=== PATIENT | female | born 1980 | race Caucasian/White ===

== ENCOUNTER 2018-07-03 22:17 | Outpatient (REF) | payer MEDICAID, SELFPAY ==
[2018-07-03 22:53] LABS: Anion Gap 12.7 mmol/L (3-11); BUN 18 mg/dL (7-18); CO2 25.3 mmol/L (21.0-32.0); CREATININE 0.85 mg/dL (0.55-1.02); Calcium 9.9 mg/dL (8.5-10.1); Chloride 99 mmol/L (98-107); Glucose 243 mg/dL (70-100); Potassium 3.8 mmol/L (3.5-5.1); Sodium 137 mmol/L (136-145)
[2018-07-04 10:51] LABS: TSH (W/Ref FT4) 8.61 uIU/mL (0.358-3.74)
[2018-07-04 11:09] LABS: FREE T4 1.05 ng/dL (0.76-1.46)
== END 2018-07-03 22:37 ==
LOC: NCHCN 22:17
PROVIDERS: PCP Family Medicine; Visit Provider Family Medicine
DX: I10 Essential (primary) hypertension (principal); E11.65 Type 2 diabetes mellitus with hyperglycemia; E03.9 Hypothyroidism, unspecified
CPT/HCPCS: 80048; 84439; 84443

== ENCOUNTER 2019-05-01 16:06 | Outpatient (REF) | payer MEDICAID, SELFPAY ==
[2019-05-01 21:09] LABS: Abs Immature Grans 0.02 k/cumm (0.0-0.09); Absolute Basophil Count 0.02 k/cumm (0.0-0.2); Absolute Eosinophil Count 0.26 k/cumm (0.0-0.7); Absolute Lymphocyte Count 2.21 k/cumm (1.2-3.4); Absolute Monocyte Count 0.53 k/cumm (0.11-0.7); Absolute Neutrophil Count 5.26 k/cumm (1.2-6.7); Basophils % 0.2; Eosinophils % 3.1; HCT 34.9 % (36.0-46.0); HGB 10.6 g/dL (12.0-15.5); Immature Grans % 0.2; Lymphocytes % 26.6; Mean Corp. HGB Concentration 30.4 g/dL (32.0-36.0); Mean Corpuscular Hemoglobin 22.1 pg (27.0-33.0); Mean Corpuscular Volume 72.9 fL (80-95); Mean Platelet Volume 11.2 fL (8.0-11.0); Monocytes % 6.4; Neutrophils % 63.5; Platelet Count 381 x1000/uL (130-400); RBC 4.79 m/cumm (4.00-5.20); RBC Distribution Width 19.1 % (11.7-14.6)
[2019-05-01 21:27] LABS: ALT 26 U/L (12-78); Anion Gap 12.2 mmol/L (3-11); BUN 14 mg/dL (7-18); CO2 22.8 mmol/L (21.0-32.0); CREATININE 0.61 mg/dL (0.55-1.02); Calcium 8.6 mg/dL (8.5-10.1); Calculated LDL 115 mg/dL; Chloride 101 mmol/L (98-107); Cholesterol 187 mg/dL (50-200); Glucose 227 mg/dL (70-100); HDL Cholesterol 42 mg/dL (40-60); Potassium 4.6 mmol/L (3.5-5.1); Sodium 136 mmol/L (136-145); TSH (W/Ref FT4) 3.75 uIU/mL (0.358-3.74); Triglyceride 151 mg/dL (30-150)
[2019-05-01 21:53] LABS: FREE T4 1.04 ng/dL (0.76-1.46)
[2019-05-01 22:39] LABS: Anisocytosis 1+; Microcytosis 1+
[2019-05-01 22:40] LABS: Stomatocytes 2+
== END 2019-05-01 16:26 ==
LOC: NCHCN 16:06
PROVIDERS: PCP Family Medicine; Visit Provider Family Medicine
DX: E11.65 Type 2 diabetes mellitus with hyperglycemia (principal); I10 Essential (primary) hypertension; E03.9 Hypothyroidism, unspecified; M79.602 Pain in left arm
CPT/HCPCS: 80048; 80061; 83721; 84439; 84443; 84460; 85025

== ENCOUNTER 2019-05-14 17:04 | Outpatient (REF) | payer MEDICAID, SELFPAY ==
--- NOTE | 2019-05-14 16:20 | PAPFT_PTH ---
PATIENT: Lamar Sotomayor LOC: [facility]#:[id number] AGE/SX: 38/F ROOM: RE05/14/[address]: Tayler Mustafa : 1980 BED: DIS: 05/14/2019 SPEC #: [id number] RECD: 05/15/19 12:50 STATUS: CHRISTAL REQ #: [id number] [place]: 05/14/19 16:[address]: Tayler Mustafa DEPT: [facility] Cytology RECD BY: Laurel Leslie ENTERED: 05/15/19 12:50 SP TYPE: PAPFT OTHR DR: Bimal Acuña Tissues: 1 - CX/ENDOCX FOR PAP SMEARS Procedures: PAP THIN PREP/[facility] Screening HPV DNA PROBE Comments: [id number]
[2019-05-14 22:56] LABS: Reticulocyte 1.8 % (0.5-2.4)
[2019-05-14 22:59] LABS: Iron 23 ug/dL (50-175); Total Iron Binding Capacity 517 ug/dL (250-450); Transferrin Sat 4 % (15-50)
[2019-05-14 23:19] LABS: Ferritin 5 ng/mL (8-388)
[2019-05-16 10:08] LABS: Transferrin 387 mg/dL (201-352)
== END 2019-05-14 17:24 ==
LOC: NCHCN 17:04
PROVIDERS: PCP Family Medicine; Visit Provider Family Medicine
DX: Z12.4 Encounter for screening for malignant neoplasm of cervix (principal); Z11.51 Encounter for screening for human papillomavirus (HPV); D50.9 Iron deficiency anemia, unspecified
CPT/HCPCS: 88142; 82728; 83540; 83550; 84466; 85045; 87624

== ENCOUNTER 2019-06-02 19:04 | Outpatient (REF) | payer MEDICAID, SELFPAY | END 2019-06-02 19:24 | LOC: NCHCN 19:04 | PROVIDERS: PCP Family Medicine; Visit Provider Registered Nurse | DX: B37.3 Candidiasis of vulva and vagina (principal) | CPT/HCPCS: 87102; 87206; 87480; 87510; 87660 ==

== ENCOUNTER 2020-08-09 16:10 | Outpatient (REF) | payer MEDICAID, SELFPAY | END 2020-08-09 16:30 | LOC: NCHCN 16:10 | PROVIDERS: PCP Nurse Practitioner Family; Visit Provider Nurse Practitioner Family | DX: B37.3 Candidiasis of vulva and vagina (principal); N89.8 Other specified noninflammatory disorders of vagina; R10.2 Pelvic and perineal pain | CPT/HCPCS: 87086 ==

== ENCOUNTER 2020-08-27 21:01 | Outpatient (REF) | payer MEDICAID, SELFPAY ==
[2020-08-27 22:10] LABS: ALT 28 U/L (14-59); AST 13 U/L (15-37); Albumin 4.1 g/dL (3.4-5.0); Alkaline Phosphatase 79 U/L (46-116); Anion Gap 14.2 mmol/L (3-11); BUN 16 mg/dL (7-18); Bilirubin, Total 0.3 mg/dL (0.2-1.0); CO2 23.8 mmol/L (21.0-32.0); CREATININE 0.94 mg/dL (0.55-1.02); Calcium 9.2 mg/dL (8.5-10.1); Chloride 100 mmol/L (98-107); Glucose 352 mg/dL (74-106); Sodium 138 mmol/L (136-145); TSH 3.22 uIU/mL (0.36-3.74); Total Protein 8.1 g/dL (6.4-8.2)
== END 2020-08-27 21:21 ==
LOC: NCHCN 21:01
PROVIDERS: PCP Nurse Practitioner Family; Visit Provider Internal Medicine
DX: Z87.448 Personal history of other diseases of urinary system (principal); I10 Essential (primary) hypertension; E11.65 Type 2 diabetes mellitus with hyperglycemia; R10.11 Right upper quadrant pain; M54.89 Other dorsalgia
CPT/HCPCS: 80053; 84443

== ENCOUNTER 2021-03-09 18:38 | Outpatient (REF) | payer MEDICAID, SELFPAY ==
[2021-03-09 22:17] LABS: COMMENT (LAB VIEW ONLY) 148.42 mg/dL; Microalb ug/mg Crea 46.6 ug/mg Cr
[2021-03-11 14:11] LABS: Chlamydia Result Negative (Negative); GC Result Negative (Negative)
== END 2021-03-09 18:39 | disposition home or self-care (01) ==
LOC: NCHCN 18:38
PROVIDERS: PCP Nurse Practitioner Family; Visit Provider Nurse Practitioner Family
DX: R30.0 Dysuria (principal); Z11.3 Encounter for screening for infections with a predominantly sexual mode of transmission; R32 Unspecified urinary incontinence
CPT/HCPCS: 87491; 87591; 82043; 82570; 87480; 87510; 87660

== ENCOUNTER 2021-07-12 19:01 | Outpatient (REF) | payer MEDICAID, SELFPAY ==
[2021-07-12 22:02] LABS: Anion Gap 8.7 mmol/L (3-11); BUN 13 mg/dL (7-18); CO2 28.3 mmol/L (21.0-32.0); CREATININE 0.7 mg/dL (0.55-1.02); Calcium 9.1 mg/dL (8.5-10.1); Chloride 104 mmol/L (98-107); Glucose 71 mg/dL (74-106); Potassium 4.1 mmol/L (3.5-5.1); Sodium 141 mmol/L (136-145)
[2021-07-14 11:54] LABS: COVID-19 RT-PCR UVMMC Result Negative (Negative)
== END 2021-07-12 19:02 | disposition home or self-care (01) ==
LOC: NCHCN 19:01
PROVIDERS: PCP Nurse Practitioner Family; Referring Provider Nurse Practitioner Family; Visit Provider Nurse Practitioner Family
DX: R19.7 Diarrhea, unspecified (principal); R10.9 Unspecified abdominal pain
CPT/HCPCS: 80048; U0003

== ENCOUNTER 2022-04-27 17:49 | Outpatient (REF) | payer MEDICAID, SELFPAY ==
[2022-04-27 22:08] LABS: ALT 22 U/L (14-59); AST 15 U/L (15-37); Albumin 4.2 g/dL (3.4-5.0); Alkaline Phosphatase 59 U/L (46-116); Anion Gap 12.8 mmol/L (3-11); BUN 21 mg/dL (7-18); Bilirubin, Total 0.2 mg/dL (0.2-1.0); CO2 22.2 mmol/L (21.0-32.0); CREATININE 0.7 mg/dL (0.55-1.02); Calcium 9.3 mg/dL (8.5-10.1); Chloride 102 mmol/L (98-107); Glucose 72 mg/dL (74-106); Potassium 3.7 mmol/L (3.5-5.1); Sodium 137 mmol/L (136-145); Total Protein 8.9 g/dL (6.4-8.2)
[2022-04-27 22:40] LABS: Hemoglobin A1C 7.3 % (<5.7)
[2022-04-29 11:02] LABS: COVID-19 RT-PCR UVMMC Result Negative (Negative)
== END 2022-04-27 17:50 | disposition home or self-care (01) ==
LOC: NCHCN 17:49
PROVIDERS: PCP Nurse Practitioner Family; Visit Provider Registered Nurse
DX: I10 Essential (primary) hypertension (principal); E11.8 Type 2 diabetes mellitus with unspecified complications; D50.0 Iron deficiency anemia secondary to blood loss (chronic); R19.7 Diarrhea, unspecified; Z20.822 Contact with and (suspected) exposure to COVID-19
CPT/HCPCS: 80053; U0003; 83036

== ENCOUNTER 2022-06-02 16:30 | Outpatient (REF) | payer MEDICAID, SELFPAY ==
[2022-06-02 21:21] LABS: Calculated LDL 99 mg/dL (<100); Cholesterol 175 mg/dL (<200); HDL Cholesterol 62 mg/dL (40-60); Triglyceride 71 mg/dL (<150)
[2022-06-05 11:30] LABS: Hepatitis C Ab w Rflx HCV PCR Negative (Negative)
[2022-06-05 12:35] LABS: HIV-1/2 Ag & Ab Screen Negative (Negative)
== END 2022-06-02 16:31 | disposition home or self-care (01) ==
LOC: NCHCN 16:30
PROVIDERS: PCP Nurse Practitioner Family; Visit Provider Family Medicine
DX: E78.70 Disorder of bile acid and cholesterol metabolism, unspecified (principal); Z11.4 Encounter for screening for human immunodeficiency virus [HIV]; Z11.59 Encounter for screening for other viral diseases
CPT/HCPCS: 80061; 86803; 87389

== ENCOUNTER 2022-07-07 18:48 | Outpatient (REF) | payer MEDICAID, SELFPAY ==
[2022-07-07 21:32] LABS: HCT 29.3 % (36.0-46.0); HGB 8.5 g/dL (11.2-15.7); MCH 19.4 pg (27.0-33.0); MCV 67 fL (80-95); MPV 10.4 fL (8.0-11.0); Platelet Count 434 10^3/uL (130-400); RBC 4.38 10^6/uL (3.93-5.22); RDW 21.2 % (11.7-14.6); RDW-SD 49.2 fL; WBC 11.82 10^3/uL (4.4-10.8)
[2022-07-07 21:44] LABS: Iron 13 ug/dL (50-170); Total Iron Binding Capacity 532 ug/dL (250-450); Transferrin Sat 2 % (15-50)
== END 2022-07-07 18:49 | disposition home or self-care (01) ==
LOC: NCHCN 18:48
PROVIDERS: PCP Nurse Practitioner Family; Visit Provider Family Medicine
DX: D50.0 Iron deficiency anemia secondary to blood loss (chronic) (principal)
CPT/HCPCS: 85027; 83540; 83550

== ENCOUNTER 2022-11-10 17:57 | Outpatient (REF) | payer MEDICAID, SELFPAY ==
[2022-11-10 21:27] LABS: Anion Gap 9.1 mmol/L (3-11); BUN 14 mg/dL (7-18); CO2 26.9 mmol/L (21.0-32.0); CREATININE 0.9 mg/dL (0.55-1.02); Calcium 9.5 mg/dL (8.5-10.1); Chloride 101 mmol/L (98-107); Estimated GFR 82.88 (mL/min/1.73m2); Glucose 104 mg/dL (74-106); Potassium 3.8 mmol/L (3.5-5.1); Sodium 137 mmol/L (136-145)
== END 2022-11-10 17:58 | disposition home or self-care (01) ==
LOC: NCHCN 17:57
PROVIDERS: PCP Nurse Practitioner Family; Visit Provider Family Medicine
DX: I10 Essential (primary) hypertension (principal)
CPT/HCPCS: 80048

== ENCOUNTER 2023-03-16 16:36 | Outpatient (REF) | payer MEDICAID, SELFPAY ==
[2023-03-16 21:18] LABS: COMMENT (LAB VIEW ONLY) 192.45 mg/dL
== END 2023-03-16 16:37 | disposition home or self-care (01) ==
LOC: NCHCN 16:36
PROVIDERS: PCP Nurse Practitioner Family; Visit Provider Family Medicine
DX: E11.8 Type 2 diabetes mellitus with unspecified complications (principal); R80.9 Proteinuria, unspecified
CPT/HCPCS: 82043; 82570

== ENCOUNTER 2023-06-15 17:52 | Outpatient (REF) | payer MEDICAID, SELFPAY ==
[2023-06-15 21:07] LABS: HCT 30.3 % (36.0-46.0); HGB 8.7 g/dL (11.2-15.7); MCH 19.5 pg (27.0-33.0); MCHC 28.7 % (32.0-36.0); MCV 68 fL (80-95); MPV 11.1 fL (8.0-11.0); Platelet Count 442 10^3/uL (130-400); RBC 4.46 10^6/uL (3.93-5.22); RDW 19.5 % (11.7-14.6); RDW-SD 46.4 fL
[2023-06-15 21:26] LABS: Anion Gap 10.2 mmol/L (3-11); BUN 14 mg/dL (7-18); CO2 25.8 mmol/L (21.0-32.0); CREATININE 0.7 mg/dL (0.55-1.02); Calcium 9.3 mg/dL (8.5-10.1); Chloride 102 mmol/L (98-107); Estimated GFR 111.36 (mL/min/1.73m2); Glucose 164 mg/dL (74-106); Potassium 3.9 mmol/L (3.5-5.1); Sodium 138 mmol/L (136-145)
[2023-06-15 21:30] LABS: Iron 17 ug/dL (50-170); Total Iron Binding Capacity 520 ug/dL (250-450); Transferrin Sat 3 % (15-50)
[2023-06-15 21:38] LABS: Hemoglobin A1C 7.5 % (<5.7)
== END 2023-06-15 17:53 | disposition home or self-care (01) ==
LOC: NCHCN 17:52
PROVIDERS: PCP Nurse Practitioner Family; Visit Provider Family Medicine
DX: E11.8 Type 2 diabetes mellitus with unspecified complications (principal); D50.0 Iron deficiency anemia secondary to blood loss (chronic); I10 Essential (primary) hypertension
CPT/HCPCS: 80048; 85027; 83036; 83540; 83550

== ENCOUNTER 2023-07-20 15:55 | Outpatient (REF) | payer MEDICAID, SELFPAY ==
[2023-07-20 20:55] LABS: HGB 8.5 g/dL (11.2-15.7); MCH 19.6 pg (27.0-33.0); MCHC 28.3 % (32.0-36.0); MPV 10.3 fL (8.0-11.0); Platelet Count 454 10^3/uL (130-400); RBC 4.34 10^6/uL (3.93-5.22); RDW 19.9 % (11.7-14.6); RDW-SD 48.5 fL; WBC 9.76 10^3/uL (4.4-10.8)
[2023-07-20 21:06] LABS: Iron 13 ug/dL (50-170); Total Iron Binding Capacity 517 ug/dL (250-450); Transferrin Sat 3 % (15-50)
[2023-07-20 21:12] LABS: MCV 69 fL (80-95)
== END 2023-07-20 15:56 | disposition home or self-care (01) ==
LOC: NCHCN 15:55
PROVIDERS: PCP Nurse Practitioner Family; Visit Provider Family Medicine
DX: D50.0 Iron deficiency anemia secondary to blood loss (chronic) (principal)
CPT/HCPCS: 85027; 83540; 83550

== ENCOUNTER 2024-03-07 16:15 | Outpatient (REF) | payer MEDICAID, SELFPAY | END 2024-03-07 16:16 | disposition home or self-care (01) | LOC: NCHCN 16:15 | PROVIDERS: PCP Nurse Practitioner Family; Visit Provider Registered Nurse | DX: R30.0 Dysuria (principal) | CPT/HCPCS: 87086 ==

== ENCOUNTER 2024-03-11 14:07 | Outpatient (REF) | payer MEDICAID, SELFPAY ==
[2024-03-11 21:08] LABS: Abs Immature Grans 0.02 10^3/uL (0.0-0.06); Absolute Basophil Count 0.04 10^3/uL (0.0-0.2); Absolute Eosinophil Count 0.28 10^3/uL (0.0-0.7); Absolute Lymphocyte Count 2.39 10^3/uL (1.2-3.4); Absolute Monocyte Count 0.71 10^3/uL (0.1-0.8); Absolute Neutrophil Count 5.74 10^3/uL (1.2-6.7); Basophils % 0.4 %; Eosinophils % 3.1 %; HCT 39.5 % (36.0-46.0); HGB 12.5 g/dL (11.2-15.7); Immature Grans % 0.2 %; MCH 26.3 pg (27.0-33.0); MCHC 31.6 % (32.0-36.0); MCV 83 fL (80-95); MPV 10.9 fL (8.0-11.0); Monocytes % 7.7 %; Neutrophils % 62.6 %; Platelet Count 525 10^3/uL (130-400); RBC 4.76 10^6/uL (3.93-5.22); RDW 14.5 % (11.7-14.6); RDW-SD 43.8 fL; WBC 9.18 10^3/uL (4.4-10.8)
[2024-03-11 21:40] LABS: Iron 42 ug/dL (50-170); Total Iron Binding Capacity 525 ug/dL (250-450); Transferrin Sat 8 % (15-50)
[2024-03-11 21:46] LABS: ALT 41 U/L (14-59); AST 41 U/L (15-37); Alkaline Phosphatase 77 U/L (46-116); Anion Gap 9.8 mmol/L (3-11); BUN 17 mg/dL (7-18); Bilirubin, Total 0.2 mg/dL (0.2-1.0); CO2 27.2 mmol/L (21.0-32.0); CREATININE 1.1 mg/dL (0.55-1.02); Chloride 99 mmol/L (98-107); Estimated GFR 64.34 (mL/min/1.73m2); Ferritin 33 ng/mL (8-252); Glucose 206 mg/dL (74-106); Potassium 3.7 mmol/L (3.5-5.1); Sodium 136 mmol/L (136-145); Total Protein 8.3 g/dL (6.4-8.2)
== END 2024-03-11 14:08 | disposition home or self-care (01) ==
LOC: NCHCN 14:07
PROVIDERS: PCP Nurse Practitioner Family; Visit Provider Family Medicine
DX: R11.2 Nausea with vomiting, unspecified (principal); R42 Dizziness and giddiness; D50.9 Iron deficiency anemia, unspecified; R30.0 Dysuria
CPT/HCPCS: 80053; 82728; 83540; 83550; 84443; 85025; 87086

== ENCOUNTER 2024-03-31 16:23 | Outpatient (REF) | payer MEDICAID, SELFPAY ==
[2024-03-31 21:32] LABS: HGB 13.6 g/dL (11.2-15.7); MCH 26.2 pg (27.0-33.0); MCHC 31.6 % (32.0-36.0); MCV 83 fL (80-95); MPV 10.9 fL (8.0-11.0); RDW 15.5 % (11.7-14.6); RDW-SD 46.6 fL; WBC 9.04 10^3/uL (4.4-10.8)
[2024-03-31 22:28] LABS: Platelet Count 422 10^3/uL (130-400)
== END 2024-03-31 16:24 | disposition home or self-care (01) ==
LOC: NCHCN 16:23
PROVIDERS: PCP Nurse Practitioner Family; Visit Provider Family Medicine
DX: D75.839 Thrombocytosis, unspecified (principal)
CPT/HCPCS: 85027

== ENCOUNTER 2024-05-30 16:53 | Outpatient (REF) | payer MEDICAID, SELFPAY ==
[2024-05-30 21:05] LABS: HCT 41.3 % (36.0-46.0); HGB 13.5 g/dL (11.2-15.7); MCH 30.3 pg (27.0-33.0); MCHC 32.7 % (32.0-36.0); MCV 93 fL (80-95); MPV 9.9 fL (8.0-11.0); Platelet Count 379 10^3/uL (130-400); RBC 4.46 10^6/uL (3.93-5.22); RDW 19.2 % (11.7-14.6); RDW-SD 66.1 fL; WBC 8.92 10^3/uL (4.4-10.8)
[2024-05-30 21:24] LABS: Iron 58 ug/dL (50-170); Total Iron Binding Capacity 398 ug/dL (250-450)
== END 2024-05-30 16:54 | disposition home or self-care (01) ==
LOC: NCHCN 16:53
PROVIDERS: PCP Nurse Practitioner Family; Visit Provider Family Medicine
DX: D50.9 Iron deficiency anemia, unspecified (principal)
CPT/HCPCS: 85027; 83540; 83550

== ENCOUNTER 2025-02-24 12:16 | Outpatient (REF) | payer MEDICAID, SELFPAY ==
[2025-02-25 13:12] LABS: Bacterial Vaginosis (BV) Negative (Negative); Candida glabrata Negative (Negative); Candida species group Positive (Negative); Trichomonas vaginalis Negative (Negative)
== END 2025-02-24 12:17 | disposition home or self-care (01) ==
LOC: NCHCN 12:16
PROVIDERS: PCP Nurse Practitioner Family; Visit Provider Nurse Practitioner Family
DX: R30.0 Dysuria (principal)
CPT/HCPCS: 81513; 87481; 87661

== ENCOUNTER 2025-04-03 12:28 | Outpatient (REF) | payer MEDICAID, SELFPAY ==
--- NOTE | 2025-04-03 15:50 | PAPFT_PTH ---
PATIENT: Lamar Sotomayor LOC: [facility]#:[id number] AGE/SX: 44/F ROOM: RE04/03/[address]: Sylvie Bobby : 1980 BED: DIS: 04/03/2025 SPEC #: [id number] RECD: 04/06/25 13:27 STATUS: CHRISTAL REEarline #: [id number] [place]: 04/03/25 15:[address]: Sylvie Bobby DEPT: [facility] INCLUDES [facility] Cytology RECD BY: Laurel Leslie Tissues: 1 - CX/ENDOCX FOR PAP SMEARS Procedures: PAP THIN PREP/[facility] Screening HPV DNA PROBE Comments: [id number] (HPV 16 & 18/45)
== END 2025-04-03 12:29 | disposition home or self-care (01) ==
LOC: LBN 12:28
PROVIDERS: PCP Family Medicine; Visit Provider Family Medicine
DX: Z12.4 Encounter for screening for malignant neoplasm of cervix (principal); Z00.00 Encounter for general adult medical examination without abnormal findings
CPT/HCPCS: 88142; 87624

== ENCOUNTER 2025-07-09 13:33 | Outpatient (REF) | payer MEDICAID, SELFPAY ==
[2025-07-09 15:09] LABS: HCT 31.5 % (36.0-46.0); HGB 9.2 g/dL (11.2-15.7); MCH 21.5 pg (27.0-33.0); MCHC 29.2 % (32.0-36.0); MPV 10.0 fL (8.0-11.0); Platelet Count 511 10^3/uL (130-400); RBC 4.28 10^6/uL (3.93-5.22); RDW 19.9 % (11.7-14.6); RDW-SD 51.5 fL; WBC 12.19 10^3/uL (4.4-10.8)
[2025-07-09 15:32] LABS: MCV 74 fL (80-95)
[2025-07-09 15:36] LABS: Iron 16 ug/dL (50-170); Total Iron Binding Capacity 519 ug/dL (250-450); Transferrin Sat 3 % (15-50)
== END 2025-07-09 13:34 | disposition home or self-care (01) ==
LOC: NCHCN 13:33
PROVIDERS: PCP Family Medicine; Visit Provider Family Medicine
DX: D50.9 Iron deficiency anemia, unspecified (principal)
CPT/HCPCS: 85027; 83540; 83550

== ENCOUNTER 2025-09-24 16:55 | Outpatient (REF) | payer MEDICAID, SELFPAY ==
[2025-09-24 21:14] LABS: HCT 39.3 % (36.0-46.0); HGB 12.6 g/dL (11.2-15.7); MCH 27.9 pg (27.0-33.0); MCHC 32.1 % (32.0-36.0); MCV 87 fL (80-95); MPV 10.2 fL (8.0-11.0); Platelet Count 482 10^3/uL (130-400); RBC 4.51 10^6/uL (3.93-5.22); RDW 20.3 % (11.7-14.6); RDW-SD 63.5 fL; WBC 10.51 10^3/uL (4.4-10.8)
[2025-09-24 21:50] LABS: ALT 19 U/L (10-49); AST 16 U/L (<34); Albumin 4.9 g/dL (3.2-5.0); Alkaline Phosphatase 72 U/L (46-116); Anion Gap 11 mmol/L (3-11); BUN 17 mg/dL (9-23); Bilirubin, Total 0.20 mg/dL (0.2-1.2); CO2 25.0 mmol/L (20.0-31.0); Calcium 9.8 mg/dL (8.3-10.6); Chloride 106 mmol/L (98-107); Cholesterol 188 mg/dL (<200); Glucose 99 mg/dL (74-106); HDL Cholesterol 60 mg/dL (>40); Potassium 3.5 mmol/L (3.5-5.1); Sodium 142 mmol/L (136-145); Total Protein 8.3 g/dL (5.7-8.2)
[2025-09-24 22:43] LABS: Iron 35 ug/dL (50-170); Total Iron Binding Capacity 402 ug/dL (250-425)
== END 2025-09-24 16:56 | disposition home or self-care (01) ==
LOC: NCHCN 16:55
PROVIDERS: PCP Family Medicine; Visit Provider Family Medicine
DX: D50.0 Iron deficiency anemia secondary to blood loss (chronic) (principal); I10 Essential (primary) hypertension; Z13.220 Encounter for screening for lipoid disorders
CPT/HCPCS: 80053; 80061; 85027; 83540; 83550